=== PATIENT | male | born 1985 | race Caucasian/White ===

== ENCOUNTER 2019-10-29 21:22 | Inpatient (IN) | payer OTHER ==
[~2019-10-29] VITALS: Ht 175.3 cm; Wt 94.8 kg
--- NOTE | 2019-10-29 21:15 | NUR ---
PT WAS BROUGHT IN BY PARAMEDICS ON BIPAP MASK GETTING AN INLINE HHNTX. PT WAS NOT IMPROVING SO DR STAFFORD INTUBATED PATIENT. SIZE 7.5 TUBE AT 24 LIP. PLACED PT ON PRESSURE CONTROL 25 ITIME 1.0 PEEP7 RR 16 FIO2 100%
[2019-10-29 21:22] VITALS: BP 166/111
--- NOTE | 2019-10-29 21:22 | NUR ---
34 YEAR OLD MALE BIBA FOR COMPLAINTS OF SHORTNESS OF BREATHE X1 HOUR. PER EMS THE PATIENT HAD AN UNPROVOKED ASTHMA ATTACK AND USED HIS INHALER WITH NO RELIEF. PATIENT WAS BROUGHT IN BY AMBULANCE WITH CPAP IN PLACE. PATIENT ARRIVED IN EMERGENCY ROOM WITH RT, 3 RNS, AND DR STAFFORD AT BEDSIDE. PATIENT WITH VISIBLE SHORTNESS OF BREATHE AND RETRACTIONS, SPO2 80%, RR 26, HR 130. PATIENT ALERT AND AWAKE, SKIN WARM AND DRY. RT PLACED PATIENT ON BIPAP AND PATIENT O2 SATURATION BECAME 90%. PATIENT LETHARGIC. WILL CONTINUE TO MONITOR PATIENT PMH - ASTHMA ALLERGIES - PENICILLINS
--- NOTE | 2019-10-29 21:22 | NUR ---
PT BIBA ALS. TAKEN TO BED 10. DR. STAFFORD AND RT AT BEDSIDE
[2019-10-29] MEDS ORDERED: BUDESONIDE 0.5 MG/2 ML NEBU INH ONE ×3 (21:24→22:40)
[2019-10-29] MEDS ORDERED: MAG SULF 2000 MG/WATER PREMIX 50 ML IV ONE ×2 (21:25→21:35)
[2019-10-29] MEDS ORDERED: methylPREDNISolone SS 125 MG/2 ML VIAL ONE (21:26)
--- NOTE | 2019-10-29 21:30 | NUR ---
PREPARING FOR INTUBATION OF PATIENT, SEDATION MEDICATION GIVEN BY SUPERVISOR PHOSPHORUS PROCESSING, RT AT BEDSIDE, DR STAFFORD AT BEDSIDE
--- NOTE | 2019-10-29 21:31 | NUR ---
MEDICATION ADMINISTRATION DOCUMENTED INCORECTLY, ETOMIDATE GIVEN AT 2129, ROCURNIUM GIVEN AT 2130 BY SALES DEVELOPMENT ASSOCIATE.
[2019-10-29] MEDS ORDERED: ROCURONIUM 50 MG/5 ML VIAL IV ONE (21:35)
[2019-10-29] MEDS ORDERED: ETOMIDATE 20 MG/10 ML VIAL IVP ONE (21:35)
[2019-10-29] MEDS ORDERED: PROPOFOL 1000 MG/100 ML PREMIX 100 ML IV ONE ×2 (21:35→21:36)
[2019-10-29] MEDS ORDERED: methylPREDNISolone SS 125 MG/2 ML VIAL IVP ONE (21:35)
[2019-10-29] MEDS ORDERED: ALBUTEROL SULFATE/IPRATROPIU 3 ML SOL IH ONE ×2 (21:35)
[2019-10-29] MEDS ORDERED: NACL 0.9% 500 ML IV SCH (21:35)
--- NOTE | 2019-10-29 21:35 | NUR ---
DR STAFFORD SUCCESSFULLY INTUBATED PATIENT.
[2019-10-29] MEDS ORDERED: ALBUTEROL 0.083% 2.5 MG/3 ML NEBU INH ONE ×2 (21:45→22:40)
[2019-10-29] MEDS ORDERED: EPINEPHrine 1:1000 - 1 MG/ML AMP IM ONE ×2 (21:45→22:00)
[2019-10-29] MEDS ORDERED: EPINEPHrine 1:1000 - 1 MG/ML AMP ONE (22:00)
--- NOTE | 2019-10-29 22:00 | NUR ---
REFER TO MEDICAL-NONVIOLENT RESTRAINT FLOW SHEET REGARDING BILATERAL UPPER EXTREMITY SOFT RESTRAINTS.
--- NOTE | 2019-10-29 22:00 | NUR ---
PATIENT PLACED ON SOFT RESTRAINTS PER VERBAL ORDER OF DR STAFFORD TO PREVENT PULLING ON TUBES FROM SEDATION IF TO WAKE UP. PMC INTACT PRIOR TO AND AFTER SOFT RESTRAINT.
--- NOTE | 2019-10-29 22:00 | NUR ---
CT AT BEDSIDE
[2019-10-29 22:01] LABS: BASOPHILS % (AUTO) 0.1 % (0.0-2.0); EOSINOPHILS # (AUTO) 0.5 K/uL (0-0.4); HEMATOCRIT 46.8 % (36-52); HEMOGLOBIN 16.3 g/dL (12.0-18.0); LYMPHOCYTES # (AUTO) 4.9 K/uL (2.0-11.5); LYMPHOCYTES % (AUTO) 31.7 % (20.5-51.1); MEAN CORPUSCULAR HEMOGLOBIN 31 pg (27-31); MEAN CORPUSCULAR HGB CONC 35 g/dL (33-37); MEAN CORPUSCULAR VOLUME 88.3 fL (80-94); MONOCYTES # (AUTO) 0.9 K/uL (0.8-1.0); MONOCYTES % (AUTO) 5.5 % (1.7-9.3); NEUTROPHILS # (AUTO) 9.2 K/uL (1.8-7.7); NEUTROPHILS % (AUTO) 59.7 % (42.2-75.2); PLATELET COUNT (AUTO) 382 K/uL (140-450); RED BLOOD CELL COUNT(AUTO) 5.29 MIL/uL (4.20-6.10); RED CELL DISTRIBUTION WIDTH 12.9 % (11.6-13.7); WHITE BLOOD COUNT (AUTO) 15.4 K/uL (4.8-10.8)
--- NOTE | 2019-10-29 22:04 | NUR ---
DR STAFFORD AWARE PT HR 55, SPO2 DROP FROM 94 TO 87%, RR22 NO RISE AND FALL OF CHEST
--- NOTE | 2019-10-29 22:04 | NUR ---
DR STAFFORD AWARE PT HR 55, NO RISE AND FALL OF CHEST
--- NOTE | 2019-10-29 22:06 | NUR ---
DR STAFFORD AT BEDSIDE, RT REMAINS AT BEDSIDE
[2019-10-29] MEDS ORDERED: KETAMINE 500 MG/5 ML VIAL ONE (22:12)
--- NOTE | 2019-10-29 22:23 | NUR ---
RT PLACED ENDOTRACHEAL TUBE DOWN TO 27CM FROM 24CM. DR STAFFORD AWARE.
--- NOTE | 2019-10-29 22:24 | NUR ---
MOTHER AT BEDSIDE
[2019-10-29 22:30] LABS: ALBUMIN 4.8 g/dL (3.4-5.0); ANION GAP 12.1 (8-16); CARBON DIOXIDE 29.3 mmol/L (21-32); CREATININE 1.1 mg/dL (0.6-1.3); POTASSIUM 3.4 mmol/L (3.5-5.1)
--- NOTE | 2019-10-29 22:31 | NUR ---
FATHER AT BEDSIDE WITH MOTHER
[2019-10-29] MEDS ORDERED: VECURONIUM 10 MG VIAL IVP ONE (22:40)
[2019-10-29] MEDS ORDERED: NACL 0.9% 1,000 ML IV ONE ×2 (22:40→23:15)
--- NOTE | 2019-10-29 22:40 | NUR ---
# 16 FR Murguia catheter with 10 ml utilizing sterile technique. Immediate return of 50 ml YELLOW urine noted. Bedside drainage bag placed below level of bladder. Urine sample collected and sent to lab. Pt tolerated procedure WELL. Indwelling murguia placed per verbal order by Dr Lainez.
--- NOTE | 2019-10-29 22:40 | NUR ---
Note ludin in EDM - 10/30/19 at 0655 by Lucibel # 16 FR Walton catheter with 10 ml utilizing sterile technique. Immediate return of 50 ml YELLOW urine noted. Bedside drainage bag placed below level of bladder. Urine sample collected and sent to lab. Pt tolerated procedure WELL.
--- NOTE | 2019-10-29 23:10 | NUR ---
PATIENT STARTING TO WAKE UP SEDATION, PROPOFOL INCREASED INDICATED ON EMAR. DR STAFFORD AWARE.
--- NOTE | 2019-10-29 23:10 | NUR ---
PATIENT DESATURATED FROM 93% TO 86%, DR STAFFORD NOTIFIED, RT CALLED STAT. PATIENT STARTED TO WAKE UP, PROPOFOL INCREASED
[2019-10-29] MEDS ORDERED: LEVOFLOXACIN 750 MG/D5W PREMIX 150 ML IV ONE (23:15)
[2019-10-29 23:24] LABS: APPEARANCE,URINE CLEAR (CLEAR); BILIRUBIN,URINE NEGATIVE (NEGATIVE); BLOOD, URINE 3+ (NEGATIVE); COLOR,URINE YELLOW (YELLOW); LEUKOCYTE ESTERASE ,URINE NEGATIVE (NEGATIVE); NITRITE, URINE NEGATIVE (NEGATIVE); UGLUCOSE 2+ (NEGATIVE)
--- NOTE | 2019-10-29 23:30 | NUR ---
PATIENT CONTINUES WAKING UP FROM SEDATION, PROPOFOL ADMIN CHARTED ON EMAR. DR STAFFORD AWARE.
--- NOTE | 2019-10-29 23:34 | NUR ---
DR STAFFORD MADE AWARE PT IS AT 40 MCG/KG/MIN OF PROPOFOL BUT PATIENT CONTINUES TO OPEN EYES AND SHAKE HEAD THEN GO BACK TO CLOSING EYES
[2019-10-29] MEDS ORDERED: KETAMINE 500 MG/5 ML VIAL IVP ONE (23:35)
--- NOTE | 2019-10-29 23:40 | NUR ---
# 14 FR NG tube placed to LEFT nare. Placement checked by auscultation of instilled air into stomach and aspiration of gastric contents. Tubing taped in place to prevent dislodging. Patient tolerated procedure well.
[2019-10-29 23:48] LABS: RBC,URINE TOO NUMEROUS TO COUN /HPF (0-5); URINE AMORPHOUS URATE 2+ /HPF (None Seen); WBC,URINE 0-5 /HPF (0-5)
[2019-10-29 23:49] LABS: HYALINE CASTS, URINE 0-10 /LPF (None Seen)
[2019-10-29] MEDS ORDERED: DOCUSATE SODIUM 100 MG GELCAP PO PRN (23:50)
[2019-10-29] MEDS ORDERED: ACETAMINOPHEN 325 MG TAB PO PRN (23:50)
[2019-10-29] MEDS ORDERED: ONDANSETRON 4 MG/2 ML VIAL IM/IVP PRN (23:50)
--- NOTE | 2019-10-29 23:50 | NUR ---
PATIENT CONTINUES WAKING UP FROM SEDATION, PROPOFOL ADMIN CHARTED ON EMAR. DR STAFFORD AWARE.
--- NOTE | 2019-10-29 23:51 | NUR ---
XRAY AT BEDSIDE TO CONFIRM NGT PLACEMENT
[2019-10-30] VITALS (100 sets, daily range): BP systolic 89–134; BP diastolic 5–82
--- NOTE | 2019-10-30 | NUR ---
PATIENT READY ON MONITOR AND LEAVING FOR TRANSPORT TO ICU. RT BAGGING PT WITH BVM, FOLLOWING WITH MECHANICAL VENTILATION MACHINE.
[2019-10-30] MEDS ORDERED: INTUBATION KIT MC ONE (00:01)
[2019-10-30] MEDS ORDERED: KETAMINE 500 MG/5 ML VIAL IVP ONE (00:05)
[2019-10-30] MEDS ORDERED: METOCLOPRAMIDE 10 MG/2 ML INJ VIAL IVP PRN (00:05)
[2019-10-30] MEDS ORDERED: FLONAS NS (00:17)
[2019-10-30] MEDS ORDERED: PRON INH (00:17)
[2019-10-30] MEDS ORDERED: MONT10TA35 PO (00:17)
--- NOTE | 2019-10-30 00:30 | NUR ---
Patient will be admitted to care of Dr Boyd. Admited to ICU. Will go to room ICU #1. Belongings list completed. Report to Marion TOMPKINS.
--- NOTE | 2019-10-30 00:30 | NUR ---
PATIENT TRANSFER COMPLETE AT ICU
--- NOTE | 2019-10-30 00:30 | NUR ---
PATIENT TRANSFERRED TO ICU BED 1 VIA RT KLAUS AT BEDSIDE WITH AMBUBAG-BAGGING, PATIENT ON SEDATION BUT AWAKE AND EYES ARE OPEN, MAKING EYE CONTACT, PATIENT IS COUGHING AND FIGHTING TUBE. PERRL 2 MM, BRISK. WITHDRAWS TO PAIN. PROPOFOL IN PLACE AND MAXED OUT AT 50 MCG/KG/MIN (25.8 ML/HR). PT HAS A PERIPHERAL IV TO LEFT FOREARM-20G, INFUSING PROPOFOL. RIGHT WRIST PERIPHERAL IV, 20 G, FLUSHED AND PATENT AND INFUSING IV ANTIBIOTIC LEVAQUIN. PATIENT TRANSFERRED TO OTHER BED WITHOUT INCIDENT. PT COUGHING AND MODERATE AMOUNT OF WHITE CREAMY SECRETIONS NOTED, SUCTIONED. ETT TO VENT, ACPC 100% FI02, RATE 22, TINSP-1.00, PEEP 7. RR- 17, BREATHING IS LABORED, PATIENT IS DIFFICULT TO CONTROL, PATIENT TRYING TO PULL OUT ETT. LUNG SOUNDS DIMINISHED THROUGHOUT. SKIN IS WARM AND PINK, INTACT, AFEBRILE, 97.0. CONNECTED TO MONITOR, S1S2 HEARD, HEART RATE- 123 BPM, ST ON MONITOR, BP- 113/66. ABDOMEN IS LARGE, ROUND AND NONTENDER WITH ACTIVE BOWEL SOUNDS. GALARZA CATHETER IN PLACE, HEMATURIA NOTED. GALARZA SITE IS INTACT NO SIGNS OF INJURY. RASS SCORE -3, AND DRY WEIGHT USED [address] TO LEFT NARE. BILATERAL SOFT WRIST RESTRAINTS IN PLACE. GOOD CIRCULATION, NO SIGNS OF INJURY, CAP REFILL LESS THAN 3 SECONDS. SAFETY ALARMS IN PLACE, HOB 30 DEGREES, SIDERAILS UP x3, WILL CONTINUE TO MONITOR.
[2019-10-30 00:33] LABS: PROTHROMBIN TIME 9.6 secs (10.8-13.4)
[2019-10-30] MEDS ORDERED: BECL10.62 IH (00:47)
[2019-10-30] MEDS ORDERED: LORazepam 2 MG/ML VIAL ONE (00:53)
[2019-10-30] MEDS ORDERED: LORazepam 2 MG/ML VIAL IM/IVP SCH (00:55)
[2019-10-30] MEDS ORDERED: MAG SULF 2000 MG/WATER PREMIX 50 ML IV SCH (01:10)
[2019-10-30] MEDS ORDERED: methylPREDNISolone SS 125 MG/2 ML VIAL IVP SCH (01:10)
[2019-10-30] MEDS: fentaNYL 1 MG in NACL 0.9% 80 ML IV PRN ×2 (01:17→12:20)
--- NOTE | 2019-10-30 01:17 | NUR ---
FENTANYL DRIP STARTED, RASS SCORE CHANGED PER CRITICAL JET INSPECTOR TO RASS -4. DR. SANDY AT BEDSIDE TO ASSESS PATIENT AND TO UPDATE FAMILY ON TREATMENT.
[2019-10-30] MEDS ORDERED: PROPOFOL 1000 MG/100 ML PREMIX 100 ML IV ONE (01:24)
[2019-10-30] MEDS ORDERED: ALBUTEROL 0.083% 2.5 MG/3 ML NEBU INH ONE ×2 (01:38→04:17)
[2019-10-30 01:42] LABS: BARBITURATE, URINE NEG. ng/ml (NEG <=200); BENZODIAZEPINE, URINE NEG. ng/mL (NEG <=200); CANNABINOID, URINE NEG. ng/mL (NEG <=50); COCAINE, URINE NEG. ng/mL (NEG <=300); OPIATE, URINE NEG. ng/mL (NEG <=2000); PHENCYCLIDINE SCREEN,URINE NEG. ng/mL (NEG <=25)
[2019-10-30 01:51] LABS: FREE T4 (FREE THYROXINE) 1.13 ng/dL (0.76-1.46); PHOSPHORUS 3.8 mg/dL (2.5-4.9); THYROID STIMULATING HORMONE 1.29 uIU/mL (0.34-3.74)
[2019-10-30] MEDS: ALBUTEROL 0.083% 2.5 MG/3 ML NEBU INH SCH ×10 (03:00→23:24)
[2019-10-30] MEDS ORDERED: ALBUTEROL SULFATE/IPRATROPIU 3 ML SOL IH SCH ×2 (03:00)
--- NOTE | 2019-10-30 04:15 | NUR ---
TURNED AND REPOSITIONED PATIENT FOR COMFORT, NO SIGNS OF INJURY AT BILATERAL WRISTS. SECURED WITH QUIK RELEASE KNOTS.
[2019-10-30] MEDS ORDERED: LORazepam 2 MG/ML VIAL IVP SCH (04:30)
[2019-10-30] MEDS ORDERED: metroNIDAZOLE 500 MG/NS PREMIX 100 ML IV SCH (05:00)
--- NOTE | 2019-10-30 05:00 | NUR ---
EMPTIED GALARZA, OUTPUT 500 ML, SMALL AMOUNT OF TRACE NOTED AND URINE COLOR IS TIKI. PROVIDED GALARZA CARE AND VAP ORAL CARE. PT TOLERATED WELL, CONTINUED ON TO SEDATION DRIPS, PROPOFOL MAXED OUT, AND FENTANYL 4MCG. RASS -4. NEURO CHECK COMPLETE, PERRL 2 MM. SKIN INTACT, WARM AND DRY, AFEBRILE. RT ENDORSED THAT LUNG SOUNDS HAVE IMPROVED SIGNIFICANTLY, CLEAR UPON AUSCULTATION, FI02 DOWN TO 30%, RATE 20, ACPC SETTINGS. LEFT AND RIGHT PERIPHERAL IV's 20'S BOTH PATENT AND ASYMPTOMATIC. NGT TO LEFT NARE STILL IN PLACE. AIR CHECK AND AUSCULTATION CONFIRMED. HOB 30 DEGREES, SIDERAILS UP x3, CALL LIGHT WITHIN REACH. FAMILY AT BEDSIDE. ORIENTED TO NOT AROUSE PATIENT AT ALL. VERBALIZES UNDERSTANDING.
[2019-10-30] MEDS: PROPOFOL 1000 MG/100 ML PREMIX 100 ML IV PRN ×6 (05:37→21:47)
[2019-10-30 06:00] LABS: BASOPHILS % (AUTO) 0.1 % (0.0-2.0); HEMATOCRIT 38.4 % (36-52); HEMOGLOBIN 13.6 g/dL (12.0-18.0); LYMPHOCYTES # (AUTO) 0.5 K/uL (2.0-11.5); LYMPHOCYTES % (AUTO) 4.6 % (20.5-51.1); MEAN CORPUSCULAR HEMOGLOBIN 31 pg (27-31); MEAN CORPUSCULAR HGB CONC 35 g/dL (33-37); MEAN CORPUSCULAR VOLUME 87.5 fL (80-94); MONOCYTES # (AUTO) 0.1 K/uL (0.8-1.0); MONOCYTES % (AUTO) 1.3 % (1.7-9.3); NEUTROPHILS # (AUTO) 10.2 K/uL (1.8-7.7); PLATELET COUNT (AUTO) 290 K/uL (140-450); RED BLOOD CELL COUNT(AUTO) 4.39 MIL/uL (4.20-6.10); WHITE BLOOD COUNT (AUTO) 10.9 K/uL (4.8-10.8)
[2019-10-30] MEDS: methylPREDNISolone SS 125 MG/2 ML VIAL IVP SCH ×4 (06:11→23:20)
[2019-10-30 06:17] LABS: ANION GAP 13.6 (8-16); CARBON DIOXIDE 24.2 mmol/L (21-32); CREATININE 1.1 mg/dL (0.6-1.3); POTASSIUM 3.8 mmol/L (3.5-5.1)
[2019-10-30 06:25] LABS: CHOL/HDL RATIO 2.7 (1-4.5)
--- NOTE | 2019-10-30 07:11 | NUR ---
RECEIVED PT ON CARESCAPE ON DOCUMENTED SETTINGS, ALARMS ARE ON AND AUDIBLE, PTS ETT IS SECURE 25 CM TEETH SIZE 7.5, ANCHOR FAST IN PLACE, PT IN HF ,QUIET BS CLEAR, PT IS RESTAINED AT THIS TIME, FAMILY AT BEDSIDE, HHN GIVEN I\L WITH 2.5 MG ALBUTEROL, BMV HOB, VENT PLUGGED INTO RED OUTLET, WILL CONTINUE TO MONITOR
--- NOTE | 2019-10-30 07:30 | NUR ---
RECEIVED PT FROM PM SHIFT RN. BEDSIDE MONITOR SHOWS SR. PUPILS PERRL 3 MM, BRISK. ON SEDATION PROPOFOL 50 MCG/KG/MIN (25.8 ML/HR) BASED ON DRY WEIGHT 86 KG TO LEFT FOREARM-20G, RASS -4. RIGHT WRIST PERIPHERAL IV # 20 G RUNNING 0.9 NS AT 100 CC/HR AND Y SITE RUNNING FENTANYL AT 4.5 MCG/KG/HR. DECREASED TO 4 MCG/KG/HR. ETT TO VENT, ACPC FIO2=30% FI02, PINSP 20, PEEP 5. RR20, NO S/S OF RESPIRATORY DISTRESS NOTED. PT HAS NG TUBE TO LEFT NARES. ABDOMEN IS ROUND AND NONTENDER WITH ACTIVE BOWEL SOUNDS.SKIN IS WARM AND PINK, INTACT, AFEBRILE. GALARZA CATHETER IN PLACE, LITTLE HEMATURIA NOTED. BILATERAL SOFT WRIST RESTRAINTS IN PLACE. GOOD CIRCULATION, NO SIGNS OF INJURY, CAP REFILL LESS THAN 3 SECONDS. SAFETY ALARMS IN PLACE, HOB 30 DEGREES, SIDE RAILS UP , WILL CONTINUE TO MONITOR.
--- NOTE | 2019-10-30 08:00 | NUR ---
dr. Boyd's group came in to check pt. dr. boyd had conversation with pt's mother regarding pt's situation.
--- NOTE | 2019-10-30 08:48 | NUR ---
PATIENT HAS BEEN SCREENED AND CATEGORIZED HIGH NUTRITION RISK. PATIENT WILL BE SEEN WITHIN 1-2 DAYS OF ADMISSION. 10/30/19-10/31/[address]
[2019-10-30] MEDS ORDERED: BECLOMETHASONE DIPROPIONATE 10.6 GM IH SCH (09:00)
[2019-10-30] MEDS: LEVOFLOXACIN 750 MG/D5W PREMIX 150 ML IV SCH (09:02)
[2019-10-30] MEDS: MONTELUKAST SODIUM 10 MG TAB PO SCH (09:03)
[2019-10-30] MEDS: PANTOPRAZOLE 40 MG INJ VIAL IVP SCH ×2 (09:03→20:22)
[2019-10-30] MEDS: FLUTICASONE NASAL 50 MCG/ACTUATION 16 GM BTL NS SCH (09:03)
[2019-10-30] MEDS: LACTOBACILLUS RHAMNOSUS GG 1 EACH CAP NG SCH (09:04)
[2019-10-30] MEDS ORDERED: CRUSHER, PILL MC ONE (09:14)
--- NOTE | 2019-10-30 09:30 | NUR ---
ORAL CARE DONE, F/C CARE DONE. PT TOLERATED WELL.
--- NOTE | 2019-10-30 10:00 | NUR ---
RECEIVED PHONE CALL FROM DR. ORTEGA , SHE CALLED PT'S MOTHER REGARDING PICC LINE. NO ANSWER, SHE LEFT VOICE MESSAGE.
[2019-10-30] MEDS ORDERED: PROBIOTIC SCREEN 1 EA MISC MC PRN (10:40)
[2019-10-30] MEDS: NACL 0.9% 1,000 ML IV SCH ×2 (11:38→15:00)
--- NOTE | 2019-10-30 13:06 | NUR ---
DR. VELARDE CALLED PT'S MOM , EXPLAINED PICC LINE. PT'S MOTHER GAVE CONSENT TO US.
--- NOTE | 2019-10-30 14:17 | NUR ---
10/30/19 RD INITIAL ASSESSMENT COMPLETED PLEASE REFER TO NUTRITION ASSESSMENT UNDER CARE ACTIVITY FOR ESTIMATED NUTRITIONAL NEEDS. 1. CONTINUE NPO MEDICALLY APPROPRIATE 2. IF/WHEN MEDICALLY APPROPRIATE CONSIDER STARTING TUBE FEEDING WITH VITAL AT 65 ML/HR X 24 HR AND PROSOURCE ONCE DAILY. START AT 25 ML/HR AND INCREASE BY 25 ML/HR Q6H -THIS WILL PROVIDE 1932 KCAL AND 132 GM OF PROTEIN WHICH MEETS 100% OF ESTIMATED NUTRIENT NEEDS 3. RECOMMEND FREE WATER FLUSH OF 110 ML Q4H 4. RECOMMEND A SWALLOW EVALUATION IF/WHEN PATIENT IS EXTUBATED AND MEDICALLY CLEARED TO START PO DIET 5. RD TO FOLLOW-UP 2-3 DAYS, HIGH RISK DAMON VENTURA RD
--- NOTE | 2019-10-30 14:30 | NUR ---
APPLIED SCDS TO PT. NO S/S OF RESPIRATORY DISTRESS NOTED. BEDSIDE MONITOR SHOWS SR.
--- NOTE | 2019-10-30 17:25 | NUR ---
CHARGE NURSE BLAYNE CALLED DR. VELARDE , NOTIFIED DR. VELARDE PT IS MORE AWAKE. PER DR. VELARDE, SHE WANTED PT TO DEEP SEDATION, RASS -4. WILL INCREASE PROPOFOL DRIP RATE.
--- NOTE | 2019-10-30 17:52 | NUR ---
PT'S MOTHER AND FATHER AT BEDSIDE.
--- NOTE | 2019-10-30 19:28 | NUR ---
RECEIVED INTUBATED PT WITH ETT SIZE 7.5 SECURED WITH ANCHOR-FAST AT 26CM @ THE LIP. PT IS ON VENT SETTINGS PC 20, RR 20, PEEP 5, iTIME 0.60, FiO2 30%. VENT PLUGGED IN RED OUTLET, ALARMS SET AND AUDIBLE, BVM AT BEDSIDE, AND HOB > 30. PT IS IN NO APPARENT RESPIRATORY DISTRESS AT THIS TIME: RR 23, HR 88, SPO2 95%, AND CLEAR BREATH SOUNDS ON THE UPPER LOBES AND COARSE BREATH SOUNDS ON THE LOWER BASES. SUCTION SCANT AMOUNT OF YELLOW THICK SECRETIONS FROM ETT. WILL CONTINUE TO MONITOR PT.
--- NOTE | 2019-10-30 19:30 | NUR ---
BEDSIDE REPORT RECEIVED FROM AM SHIFT RN. PT SEDATED, RASS -4. PT ETT TO VENT ON ACPC SETTINGS. FIO2 30, PINSP 20, RATE 20, PEEP 5. LUNG SOUNDS CLEAR. HEART SOUNDS HEARD S1 AND S2. IV SITE L WRIST 20 GAUGE, R WRIST 20 GAUGE. INFUSING NS AT 100 ML/HR, PROPOFOL 60 MCG/KG/MIN, AND FENTANYL 4 MCG/KG/MIN. DRY WEIGHT 86 KG. ABDOMEN SOFT AND NON TENDER. NGT IN L NARE, CLAMPED. PT ON SOFT BILAT WRIST RESTRAINTS. GALARZA CATHETER IN PLACE. SKIN INTACT, WARM AND DRY. HOB 30 DEGREES. BED LOCKED IN LOWEST POSITION. WILL CONTINUE TO MONITOR.
--- NOTE | 2019-10-30 21:12 | NUR ---
PICC LINE RN AND BILINGUAL LEGAL ASSISTANT AT BEDSIDE
--- NOTE | 2019-10-30 23:12 | NUR ---
FAMILY AT BEDSIDE
[2019-10-31] VITALS (77 sets, daily range): BP systolic 94–146; BP diastolic 43–85
[2019-10-31] MEDS: NACL 0.9% 1,000 ML IV SCH ×3 (00:51→12:36)
[2019-10-31] MEDS: PROPOFOL 1000 MG/100 ML PREMIX 100 ML IV PRN ×5 (00:57→14:35)
--- NOTE | 2019-10-31 01:20 | NUR ---
PT RESTING IN BED, EYES CLOSED. RESPIRATIONS EVEN AND UNLABORED. CHEST RISE IS SYMMETRICAL. HOB 30 DEGREES. BED LOCKED IN LOWEST POSITION. WILL CONTINUE TO MONITOR.
[2019-10-31] MEDS: ALBUTEROL 0.083% 2.5 MG/3 ML NEBU INH SCH ×7 (01:22→23:16)
--- NOTE | 2019-10-31 03:45 | NUR ---
PT RESTING IN BED, EYES CLOSED. RESPIRATIONS EVEN AND UNLABORED. CHEST RISE IS SYMMETRICAL. HOB 30 DEGREES. BED LOCKED IN LOWEST POSITION. WILL CONTINUE TO MONITOR.
--- NOTE | 2019-10-31 05:52 | NUR ---
PT ETT TO VENT. LUNG SOUNDS CLEAR. PT RESTING IN BED, EYES CLOSED. RESPIRATIONS EVEN AND UNLABORED. CHEST RISE IS SYMMETRICAL. HOB 30 DEGREES. BED LOCKED IN LOWEST POSITION. WILL CONTINUE TO MONITOR.
--- NOTE | 2019-10-31 06:15 | NUR ---
LEG MAN AT BEDSIDE.
[2019-10-31] MEDS: methylPREDNISolone SS 125 MG/2 ML VIAL IVP SCH ×3 (06:24→18:46)
[2019-10-31] MEDS: fentaNYL 1 MG in NACL 0.9% 80 ML IV PRN (06:25)
--- NOTE | 2019-10-31 07:15 | NUR ---
BEDSIDE REPORT GIVEN TO AM SHIFT RN FOR CONTINUITY OF CARE.
[2019-10-31 07:27] LABS: BASOPHILS % (AUTO) 0.1 % (0.0-2.0); HEMATOCRIT 34.9 % (36-52); HEMOGLOBIN 12.2 g/dL (12.0-18.0); LYMPHOCYTES # (AUTO) 0.8 K/uL (2.0-11.5); LYMPHOCYTES % (AUTO) 5.5 % (20.5-51.1); MEAN CORPUSCULAR HEMOGLOBIN 31 pg (27-31); MEAN CORPUSCULAR HGB CONC 35 g/dL (33-37); MEAN CORPUSCULAR VOLUME 89.1 fL (80-94); MONOCYTES # (AUTO) 0.4 K/uL (0.8-1.0); MONOCYTES % (AUTO) 2.7 % (1.7-9.3); NEUTROPHILS # (AUTO) 12.8 K/uL (1.8-7.7); NEUTROPHILS % (AUTO) 91.7 % (42.2-75.2); PLATELET COUNT (AUTO) 275 K/uL (140-450); RED BLOOD CELL COUNT(AUTO) 3.92 MIL/uL (4.20-6.10); RED CELL DISTRIBUTION WIDTH 12.9 % (11.6-13.7)
--- NOTE | 2019-10-31 07:29 | NUR ---
RECIVED PT ON VENT WITH SETTINGS CHARTED BREATH SOUNDS PRESENT BILAT CLEAR SXN PT WITH MIN AMT OFF WHITE SECS ETT SECURE ANBU BAG AT BEDSIDE VENT PLUGGED INTO RED OUTLET WILL CONTINUE TO MONITOR PT ON VENT
--- NOTE | 2019-10-31 07:30 | NUR ---
BEDSIDE REPORT RECIEVED FROM PM SHIFT RN. PT SEDATED RASS -4, FLACC 0. TEMP 98.6F, PERRLA,. PT ETT TO VENT ON ACPC FIO2 30 PINSP 20 RATE 20 PEEP 5 LUNG SOUNDS CLEAR BILATERAL DIMINISHED AT BASES. NORMAL SINUS RYTHM ON MONITOR S1 AND S2 HEART SOUNDS HEARD PULSES PALPABLE BILATERAL. PICC LINE RIGHT UPPER ARM, IV LEFT WRIST 20 GUAGE, IV RIGHT WRIST 20 GUAGE, ns INFUSING 100 ML/HR, DRY WEIGHT 86 KG, PROPOFOL 65 MCG/KG/HR, FENTANYL 4 MCG/KG/HR. NG TUBE LEFT NARE, ABDOMEN SOFT NON DISTENED,GALARZA IN PLACE CLEAR YELLOW URINE TO GRAVITY, SKIN INTACT AND DRY. PT ON SOFT WRIST RESTRAINTS, HOB ELEVATED 30 DEGREES, BED AT LOWEST POSTITION, CALL LIGHT IN REACH, WILL CONTINUE TO MONITOR
[2019-10-31] MEDS: PANTOPRAZOLE 40 MG INJ VIAL IVP SCH ×2 (08:17→22:02)
[2019-10-31] MEDS: MONTELUKAST SODIUM 10 MG TAB PO SCH (08:17)
[2019-10-31] MEDS: LACTOBACILLUS RHAMNOSUS GG 1 EACH CAP NG SCH (08:17)
[2019-10-31] MEDS: LEVOFLOXACIN 750 MG/D5W PREMIX 150 ML IV SCH (08:17)
[2019-10-31] MEDS: FLUTICASONE NASAL 50 MCG/ACTUATION 16 GM BTL NS SCH (08:18)
--- NOTE | 2019-10-31 08:30 | NUR ---
DR. HOLBROOK AND RESIDENT GROUP IN UNIT TO SEE PT WILL FOLLOW UP ON ORDERS.
--- NOTE | 2019-10-31 08:45 | NUR ---
MEDICATIONS ADMINISTERED ORDERED
[2019-10-31 09:17] LABS: ANION GAP 15.2 (8-16); CARBON DIOXIDE 23.1 mmol/L (21-32); CREATININE 1.2 mg/dL (0.6-1.3); POTASSIUM 4.3 mmol/L (3.5-5.1)
[2019-10-31 09:21] LABS: MAGNESIUM 2.2 mg/dL (1.8-2.4); PHOSPHORUS 3.5 mg/dL (2.5-4.9)
--- NOTE | 2019-10-31 11:00 | NUR ---
DISCHARGE PLANNING: THIS IS A 34 Y/O MALE PATIENT FROM HOME, WHO CAME IN DUE TO SHORTNESS OF BREATH X 1 DAY. PAST MEDICAL HISTORY OF EXERCISE INDUCED ASTHMA. INITIAL DIAGNOSIS OF ACUTE RESPIRATORY FAILURE. PATIENT WAS ORALLY INTUBATED IN THE ED AND WAS PLACED TO VENT, FIO2 30%. CURRENT LABS INCLUDE WBC 14.0, H/H 12.2/34.9, NA/K 137/4.3, BUN/CREA 19/1.2, LACTIC ACID 2.2 ON ADMISSION AND 6.1 TODAY. ON PROPOFOL AND VERSED DRIPS. ON LEVAQUIN AND SOLU MEDROL. PULMO CONSULT IN PLACE. DC PLAN PENDING ON PATIENT'S RESPONSE TO TREATMENT. Addendum: 11/01/19 at 1048 by Carla Nathan PATIENT SELF EXTUBATED YESTERDAY 10/31/2019 AT 1530. WAS PLACED ON NC AT 2LPM, SAT 96%. FC CATHETER DISCONTINUED. ON MED SURG STATUS NOW.
--- NOTE | 2019-10-31 11:06 | NUR ---
PATIENT FAMILY VISITED UPDATED ON PT STATUS
--- NOTE | 2019-10-31 12:00 | NUR ---
PATIENT RASS -4 EYES CLOSED, ORAL CARE COMPLETED, LINES PATENT NS, PROPOFOL, FENTANYL INFUSING, PT COMFORTABLE FLACC 0
--- NOTE | 2019-10-31 15:00 | NUR ---
CALLED TO PT BEDSIDE DR AT BEDSIDE PT EXTUBATED HIMSELF PT AWAKE ALERT DOING WELL PLACED ON 2LPM NC WILL CONINUE TO MONITOR PT ON 2LPM NC
--- NOTE | 2019-10-31 15:15 | NUR ---
DR. CASSIDY IN THE UNIT AND PT'S MOTHER, LATOYA LAWS WAS CALLED BUT DID NOT ENGAGEMENT MGR PHONE. ATTEMPTED TO CALL TWO TIMES AND LEFT MESSAGE.
--- NOTE | 2019-10-31 15:25 | NUR ---
PT SELF EXTUBATED DR. BLEVINS, DR. VANG AT BEDSIDE, RT WAS CALLED TO BEDSIDE SPO2 WAS 96% ROOM AIR. WAS PUT ON OXYGEN 2L PER MIN NASAL CANNULA BY RT PER DR. BLEVINS'S ORDER, HR 103 NIBP 132/92 RESP 17 NO SIGNS OF DISTRESS NOTED AT THIS TIME WILL CONTINUE TO MONITOR PT
--- NOTE | 2019-10-31 15:52 | NUR ---
PTS MOTHER AND FRIENDS AT BEDSIDE, UPDATES GIVEN ON PTS SELF EXTUBATION, DR VANG AT BEDSIDE SPEAKING WITH MOTHER. PT RECEIVING BREATHING TREATMENT AT THIS TIME VITAL SIGNS STABLE.
--- NOTE | 2019-10-31 18:21 | NUR ---
PT MOM STILL BEDSIDE, VITALS STABLE, PT ABLE TO SELF SUCTION. WILL CONTINUE TO MONITOR VITALS
--- NOTE | 2019-10-31 19:17 | NUR ---
report given to night clerk auditor RN for continuity of care, pt is in stable condition.
--- NOTE | 2019-10-31 19:30 | NUR ---
RECEIVED REPORT FROM DAY SHIFT PATIENT IS AWAKE ALERT ORIENTED VERY PLEASANT AND IS ABLE TO FOLLOW COPMMAND MOVES ALL EXTREMITIOES.PATIENT IS ON 2 LITERS NASAL CANNULA SATURATING 95%.PATIENT JUST SELF EXTUBATED SELF ABOUT 1530.PATIENT NOW IS IN NO DISTRESS.PATIENT HAS PERIPHERAL IV IN PLACE ON RIGHT SAW WITHGAUGE 20 AND A HE LOCK IN PLACE ON LEFT HAND ,A PICC LINE IS IN PLACE ON RIGHT UPPER ARM AND ITS HEPLOCK.PATIENT ABDOMEN IS SOFT AND HAS BOWEL SOUND GALARZA CATH IN PLACE AND IS DCD ORDERED/.
--- NOTE | 2019-10-31 22:00 | NUR ---
PATIENT FIANCEE AT BEDSIDE VISITING.
--- NOTE | 2019-10-31 22:06 | NUR ---
PLACED PT ON 2L NC WITH SPO2 OF 94% AFTER ABG RESULTS. WILL CONTINUE TO MONITOR.
--- NOTE | 2019-10-31 23:34 | NUR ---
TITRATE PT O2 TO 3L NC WITH SPO2 OF 95-96%. WILL CONTINUE TO MONITOR PT.
[2019-11-01] VITALS (16 sets, daily range): BP systolic 114–148; BP diastolic 58–87
[2019-11-01] MEDS: methylPREDNISolone SS 125 MG/2 ML VIAL IVP SCH ×4 (00:09→18:06)
[2019-11-01] MEDS: ALBUTEROL 0.083% 2.5 MG/3 ML NEBU INH SCH ×5 (03:08→20:01)
[2019-11-01 06:10] LABS: HEMATOCRIT 33.9 % (36-52); HEMOGLOBIN 11.8 g/dL (12.0-18.0); LYMPHOCYTES # (AUTO) 0.6 K/uL (2.0-11.5); LYMPHOCYTES % (AUTO) 4.3 % (20.5-51.1); MEAN CORPUSCULAR HEMOGLOBIN 31 pg (27-31); MEAN CORPUSCULAR HGB CONC 35 g/dL (33-37); MEAN CORPUSCULAR VOLUME 89.2 fL (80-94); MONOCYTES # (AUTO) 0.4 K/uL (0.8-1.0); MONOCYTES % (AUTO) 2.4 % (1.7-9.3); NEUTROPHILS # (AUTO) 13.7 K/uL (1.8-7.7); NEUTROPHILS % (AUTO) 93.3 % (42.2-75.2); PLATELET COUNT (AUTO) 265 K/uL (140-450); WHITE BLOOD COUNT (AUTO) 14.7 K/uL (4.8-10.8)
[2019-11-01 06:56] LABS: ANION GAP 12.2 (8-16); CARBON DIOXIDE 28.9 mmol/L (21-32); CREATININE 0.9 mg/dL (0.6-1.3); POTASSIUM 4.1 mmol/L (3.5-5.1)
[2019-11-01 07:11] LABS: MAGNESIUM 2.2 mg/dL (1.8-2.4); PHOSPHORUS 3.4 mg/dL (2.5-4.9)
--- NOTE | 2019-11-01 08:00 | NUR ---
DR. HOLBROOK AND THE RESIDENT TEAM MAKE ROUND AT BEDSIDE.
[2019-11-01] MEDS: MONTELUKAST SODIUM 10 MG TAB PO SCH (08:22)
[2019-11-01] MEDS: PANTOPRAZOLE 40 MG INJ VIAL IVP SCH ×2 (08:23→21:05)
[2019-11-01] MEDS: LACTOBACILLUS RHAMNOSUS GG 1 EACH CAP NG SCH (08:23)
[2019-11-01] MEDS: LEVOFLOXACIN 750 MG/D5W PREMIX 150 ML IV SCH (08:24)
[2019-11-01] MEDS: FLUTICASONE NASAL 50 MCG/ACTUATION 16 GM BTL NS SCH (08:25)
--- NOTE | 2019-11-01 08:30 | NUR ---
CLEAR LIQUID TOLERATED.
--- NOTE | 2019-11-01 09:00 | NUR ---
EVALUATE BY PT. UP AND WALKED .
[2019-11-01] MEDS: NACL 0.9% 1,000 ML IV SCH ×2 (09:38→21:32)
--- NOTE | 2019-11-01 10:30 | NUR ---
VISIT BY MOTHER AT BEDSIDE. PATIENT AWAKE AND ALERT.
--- NOTE | 2019-11-01 12:50 | NUR ---
DR. VELARDE AT BED SIDE PATIENT STILL TACHYCARDIA , ORDER RECEIVED STAT EKG AND LAB WORK FOR TROPONIN LEVEL.
--- NOTE | 2019-11-01 15:29 | NUR ---
11/01/19 RD FOLLOW UP COMPLETED PLEASE REFER TO NUTRITION ASSESSMENT UNDER CARE ACTIVITY FOR ESTIMATED NUTRITIONAL NEEDS. 1. CONTINUE REGULAR DIET TOLERATED 2. RECOMMEND ENSURE CLEAR TID 3. RD TO FOLLOW-UP 3-5 DAYS, MODERATE RISK DAMON VENTURA RD
--- NOTE | 2019-11-01 15:30 | NUR ---
CALLED TELE REGARDING PT TRANSFER HE WILL TRANSFER TO RM [id number].
--- NOTE | 2019-11-01 18:00 | NUR ---
TRANSFER TO RM [id number] IN WHEELCHAIR.
--- NOTE | 2019-11-01 18:16 | NUR ---
PT ARRIVED FROM ICU IN A WHEELCHAIR, ACCOMPANIED BY RN AND MOM. PT IS AWAKE AND ORIENTED. AMBULATORY. WALKED TO TO THE BATHROOM AND BACK TO BED. STEADY GAIT. PT IS NOT A FALL RISK. PT IS ON THE TELE MONITOR. IV ON R WRIST 20G SL. PICC LINE ON R UA, 2 LUMEN SL. PT IS ON ROOM AIR, SATURATING AT 94% WILL KEEP MONITORING PT. IF O2 SATURATION STAYS LOW 90'S, WILL ADMINISTER 2L OF O2 NC. SKIN INTACT. WILL CONTINUE TO MONITOR PT. PER VICE PRESIDENT GLOBAL ADVERTISING SALES, PT HADN'T HAD A BM OF YET. HAS NOT COLLECTED A STOOL SAMPLE FOR OCCULT BLOOD. WILL ENDORSE TO UTILIZATION SUPERVISOR.
--- NOTE | 2019-11-01 19:11 | NUR ---
ENDORSED PT TO THE VET ASSISTANT NURSE. STILL UNABLE TO LOCATE CHART FROM ICU. CALLED ICU AND REQUESTED. PT IS IN STABLE CONDITION.
--- NOTE | 2019-11-01 19:20 | NUR ---
RECEIVED PT FROM JANE RN PT IS AAOX4 AMBULATO;RY ON TELMETRY SR, PICC LINE ON RT UPPER ARM PATENT AND HL ON RT HQAND PATENTN NOT SOB NOTED INITIAL ASSESSMENT DONE
--- NOTE | 2019-11-01 22:00 | NUR ---
PT ON 2 LTS VIA NC VOIDING WELL DENIES ANY PAIN ON TELEMETRY SR REMAIN STABLE
[2019-11-02] VITALS: BP 126/74
[2019-11-02] MEDS: methylPREDNISolone SS 125 MG/2 ML VIAL IVP SCH ×3 (00:25→11:23)
--- NOTE | 2019-11-02 01:00 | NUR ---
PT SLEEPING WELL NOT SIGNS OF DISTRESS NOTED ONTELEMETRY SR IV FLUIDS INFUDSING WELL ON RT UPPER ARM
[2019-11-02] MEDS: ALBUTEROL 0.083% 2.5 MG/3 ML NEBU INH SCH ×4 (02:02→11:25)
[2019-11-02 04:00] VITALS: BP 125/73
--- NOTE | 2019-11-02 04:00 | NUR ---
LINEN CHANGED REMAIN STABLE NOT SOB NOTED ON TELE SR
[2019-11-02] MEDS ORDERED: BISACODYL 10 MG SUPP RC ONE (06:45)
--- NOTE | 2019-11-02 07:00 | NUR ---
PT AWAKE ON 09 30 LTS VIA NC NOT SOB NOTED ON TELE SR PT WILL BE ENDORSED TO DAY SHIFT NURSE FOR CONTINUE OF CARE
--- NOTE | 2019-11-02 07:15 | NUR ---
RECEIVED BEDSIDE REPORT FORM DIRECTOR OF CURRICULUM AND INSTRUCTION NURSE. PT IS AWAKE AND ALERT, SITTING UP IN BED, ON 2L O2 NC. NO S/S OF ACUTE DISTRESS OR SOB NOTED. FALL PRECAUTIONS IN PLACE. PICC LINE NOTED IN THE RUE, AND R HAND 20 G PIV, INFUSING NS 60 ML/HR. SKIN IS INTACT. CALL LIGHT IS WITHIN REACH. WILL CONTINUE TO MONITOR.
--- NOTE | 2019-11-02 07:55 | NUR ---
SATURATION 98% ON SUPPLEMENTAL OXYGEN AT [address] ZAINAB HOLBROOK AT BEDSIDE AWARE OF OXYGEN SATURATION STATES "OK TO LEAVE OF OXYGEN PATIENT TO BE DISCHARGED" AUTOMATIC FURNACE OPERATOR TO MONITOR
[2019-11-02 08:00] VITALS: BP 140/81
[2019-11-02] MEDS ORDERED: PRED10TA5 PO (08:30)
[2019-11-02] MEDS ORDERED: BECL10.62 IH (08:32)
[2019-11-02] MEDS ORDERED: MONT10TA35 PO (08:32)
[2019-11-02] MEDS ORDERED: PRON INH (08:32)
[2019-11-02] MEDS ORDERED: LEVO750T2 PO (08:35)
[2019-11-02 08:47] LABS: BASOPHILS % (AUTO) 0.1 % (0.0-2.0); HEMATOCRIT 40.3 % (36-52); HEMOGLOBIN 13.5 g/dL (12.0-18.0); LYMPHOCYTES # (AUTO) 0.9 K/uL (2.0-11.5); LYMPHOCYTES % (AUTO) 8.2 % (20.5-51.1); MEAN CORPUSCULAR HEMOGLOBIN 31 pg (27-31); MEAN CORPUSCULAR HGB CONC 34 g/dL (33-37); MEAN CORPUSCULAR VOLUME 91.2 fL (80-94); MONOCYTES # (AUTO) 0.4 K/uL (0.8-1.0); MONOCYTES % (AUTO) 3.7 % (1.7-9.3); NEUTROPHILS # (AUTO) 9.8 K/uL (1.8-7.7); PLATELET COUNT (AUTO) 293 K/uL (140-450); RED BLOOD CELL COUNT(AUTO) 4.41 MIL/uL (4.20-6.10); WHITE BLOOD COUNT (AUTO) 11.2 K/uL (4.8-10.8)
[2019-11-02 08:55] LABS: ANION GAP 11.1 (8-16); CARBON DIOXIDE 30.5 mmol/L (21-32); CREATININE 0.9 mg/dL (0.6-1.3); POTASSIUM 4.6 mmol/L (3.5-5.1)
[2019-11-02 08:59] LABS: MAGNESIUM 2.3 mg/dL (1.8-2.4)
[2019-11-02] MEDS: LACTOBACILLUS RHAMNOSUS GG 1 EACH CAP NG SCH (09:27)
[2019-11-02] MEDS: PANTOPRAZOLE 40 MG INJ VIAL IVP SCH (09:27)
[2019-11-02] MEDS: LEVOFLOXACIN 750 MG/D5W PREMIX 150 ML IV SCH (09:27)
[2019-11-02] MEDS: MONTELUKAST SODIUM 10 MG TAB PO SCH (09:27)
--- NOTE | 2019-11-02 09:53 | NUR ---
AM MEDS ADMINISTERED, PT TOLERATED WELL. PT DECLINED THE SUBQ HEPARIN
--- NOTE | 2019-11-02 11:00 | NUR ---
PT IS SATTING 95-98% ON ROOM AIR. HE HAS BEEN OFF OF O2 NC SINCE BEGINNING OF SHIFT TODAY.
--- NOTE | 2019-11-02 13:01 | NUR ---
PT HAS DC'D. PT'S MOM PICKING PT UP. PICC LINE AND IV WERE TAKEN OUT, WRIST BANDS REMOVED. PT WAS GIVEN DC INFORMATION ON MEDICATIONS AND FOLLOW-UP CARE. PT AND MOTHER VERBALIZED UNDERSTANDING. PT LEFT IN STABLE CONDITION WITH ALL HIS BELONGINGS.
[2019-11-02] MEDS ORDERED: ALBU0.0912 IH (19:34)
== END 2019-11-02 12:55 | disposition home or self-care (01) | DRG 871 ==
LOC: MED 21:22 → MIC 23:45 → MTU 11-01 18:45
PROVIDERS: ADMIT General Practice; ATTEND General Practice
PROC: 5A1945Z Respiratory Ventilation, 24-96 Consecutive Hours (ICD-10-PCS; principal; 2019-10-29)
PROC: 0BH17EZ Insertion of Endotracheal Airway into Trachea, Via Natural or Artificial Opening (ICD-10-PCS; 2019-10-29)
PROC: 02HV33Z Insertion of Infusion Device into Superior Vena Cava, Percutaneous Approach (ICD-10-PCS; 2019-10-30)
PROC: B548ZZA Ultrasonography of Superior Vena Cava, Guidance (ICD-10-PCS; 2019-10-30)
DX: A41.9 Sepsis, unspecified organism (principal); J96.01 Acute respiratory failure with hypoxia; J18.9 Pneumonia, unspecified organism; J96.02 Acute respiratory failure with hypercapnia; J45.901 Unspecified asthma with (acute) exacerbation; Z88.0 Allergy status to penicillin; E66.3 Overweight; E87.6 Hypokalemia; A08.4 Viral intestinal infection, unspecified; R31.9 Hematuria, unspecified; E86.0 Dehydration; K21.9 Gastro-esophageal reflux disease without esophagitis; R13.11 Dysphagia, oral phase; Z68.30 Body mass index [BMI] 30.0-30.9, adult
CPT/HCPCS: 36415; 36600; 71045; 76770; 80048; 80053; 80305; 81001; 82150; 82803; 83036; 83605; 83690; 83735; 83880; 84100; 84134; 84439; 84443; 84484; 85025; 85379; 85610; 85730; 87040; 87070; 87081; 87086; 87205; 87804; 89220; 94002; 94003; 94640; 94644; 96372; 96374; 97116; 97161-GP; 99291; 99292; C1751; C9113; J0171; J1644; J1956; J2060; J2704; J2765; J2930; J3010; J3475; J3490; J7030; J7613; J7626; Q0092

== ENCOUNTER 2019-11-15 21:15 | Emergency (ER) | payer SELFPAY ==
[~2019-11-15] VITALS: Ht 175.3 cm; Wt 94.5 kg
[~2019-11-15 21:15] MED LIST: ALBU0.0912 IH; BECL10.62 IH; FLONAS NS; LEVO750T2 PO; MONT10TA35 PO; PRED10TA5 PO; PRON INH
[2019-11-15 21:16] VITALS: BP 154/87
[2019-11-15] MEDS ORDERED: LORazepam 1 MG TAB PO ONE (21:35)
[2019-11-15] MEDS ORDERED: ALBUTEROL SULFATE/IPRATROPIU 3 ML SOL IH ONE (21:35)
[2019-11-15] MEDS ORDERED: methylPREDNISolone SS 125 MG/2 ML VIAL IM ONE (21:35)
[2019-11-15 22:18] VITALS: BP 154/87
== END 2019-11-15 22:18 | disposition home or self-care (01) ==
LOC: MED 21:15
DX: J45.901 Unspecified asthma with (acute) exacerbation (principal); F41.9 Anxiety disorder, unspecified; Z88.0 Allergy status to penicillin; Z79.899 Other long term (current) drug therapy
CPT/HCPCS: 71046; 94640; 96372; 99283; J2930

== ENCOUNTER 2019-12-04 21:16 | Emergency (ER) | payer SELFPAY ==
[~2019-12-04] VITALS: Ht 175.3 cm; Wt 95.8 kg
[2019-12-04 21:19] VITALS: BP 124/80
[2019-12-04] MEDS ORDERED: ALBUTEROL SULFATE/IPRATROPIU 3 ML SOL IH ONE ×2 (21:40)
[2019-12-04] MEDS ORDERED: methylPREDNISolone SS 125 MG in WATER STERILE 2 ML IV ONE (21:40)
[2019-12-04] MEDS ORDERED: WATER STERILE 10 ML MC ONE (21:42)
[2019-12-04] MEDS ORDERED: methylPREDNISolone SS 125 MG/2 ML VIAL ONE (21:43)
[2019-12-04] MEDS: PHENYLEPHRINE 0.5% 15 ML BTL NS ONE ×2 (22:25→22:37)
[2019-12-04] MEDS ORDERED: ALBUTEROL 0.083% 2.5 MG/3 ML NEBU INH ONE (23:50)
[2019-12-05 00:53] VITALS: BP 124/80
== END 2019-12-05 00:51 | disposition home or self-care (01) ==
LOC: MED 21:16
DX: J45.901 Unspecified asthma with (acute) exacerbation (principal); Z98.890 Other specified postprocedural states; Z79.899 Other long term (current) drug therapy; Z88.0 Allergy status to penicillin
CPT/HCPCS: 71045; 94640; 96374; 99284; J2930; J7613; 99285